=== PATIENT | male | born 1995 | race Caucasian/White ===

== ENCOUNTER 2020-06-10 01:01 | Emergency (ER) | payer MEDICAID, SELFPAY ==
[2020-06-10 01:13] VITALS: BP 164/87; PULSE 59; RESP 18; TEMP 36.8; O2SAT 97; BMI 29.3
[2020-06-10 01:17] VITALS: O2SAT 97
--- NOTE | 2020-06-10 01:26 | W.ED.COVID ---
HPI - COVID General: Chief Complaint: COVID symptoms Stated Complaint: covid exposure/cough Time Seen by Provider: 06/10/20 01:05 Triage information: Has fever, cough or shortness of breath. Exposure to COVID + person last 14 days History of Present Illness: HPI Narrative: chills, diarrhea, post exposure MD complaint: reported COVID exposure and has COVID symptoms Prior covid testing: no COVID 19 common symptoms: positive chills, cough, non-productive cough, body aches, loss of sense of smell and/or taste, nausea and diarrhea; negative headache(s), throat pain or nasal congestion COVID 19 other sytmptoms: negative chest pain Onset (ago): day(s) Severity: mild Treatment prior to arrival: none COVID Results: SARS-CoV-2 RNA (RT-PCR) Pending 06/10/20 01:30 06/10/20 Review of Systems Const: Reports: chills and body aches Eyes: Denies: change in vision or blurry vision ENMT: Denies: throat pain or nasal congestion Card: Denies: chest pain or dyspnea on exertion Resp: Reports: non-productive cough GI: Reports: nausea and diarrhea : Denies: difficulty urinating Musc: Denies: extremity pain Skin/Breast: Denies: rash Neuro: Denies: headache(s) Psych: Denies: anxiety or depression David/Lymph: Denies: easy bruising PFS ED PFSH: Social History (Updated 01/07/20 @ 11:09 by Agustina Campoverde LPN) Smoking and tobacco status: never smoked Alcohol intake: current Physical Exam Const: COMMON NORMALS: no acute distress Neck/C-Spine: COMMON NORMALS: no JVD Chest: COMMONS NORMALS: normal inspection of the chest Resp: COMMON NORMALS: normal respiratory effort Cardio: COMMON NORMALS: no JVD GI: INSPECTION: Yes normal to inspection Psych: COMMON NORMALS: mental status grossly normal Course Vital Signs: Vital signs: Vital Signs Temperature 98.3 F 06/10/20 01:39 Pulse Rate 84 06/10/20 01:39 Respiratory Rate 18 06/10/20 01:39 Blood Pressure 161/69 06/10/20 01:39 Pulse Oximetry 97 06/10/20 01:39 MDM - COVID Lab Data COVID Results: SARS-CoV-2 RNA (RT-PCR) Pending 06/10/20 01:30 06/10/20 Discharge Plan Discharge Patient Disposition: Home Clinical Impression: Exposure to severe acute respiratory syndrome coronavirus 2 (SARS-CoV-2) Condition: Stable Prescriptions: New Zofran 4 mg tablet 4 mg PO Q8H PRN (Reason: nausea and vomiting) 3 Days Qty: 10 RF: 0 No Action risperidone [Risperdal] 2 mg tablet 2 mg PO DAILY RF: 0 buspirone 5 mg tablet 5 mg PO BID RF: 0 trazodone 100 mg tablet 100 mg PO DAILY RF: 0 valacyclovir 1 gram tablet 1,000 mg PO Q8H 7 Days Qty: 21 RF: 0 Discharge Orders: Discharge Order (Routine); Ordered 06/10/20 Ordered By: Rosalio Doyle Discharge Diet: Advance as tolerated Discharge Activity: Increase activity as tolerated Patient Instructions: Viral Syndrome (ED) Activity Restrictions/Additional Instructions: self quarantine at home. No work until test results are back, rest, fluids. Stand Alone Forms: Work/School Release Discharge Date/Time: 06/10/20 01:39 Coding Level of Care Code ED Inbound Call Center Representative for Chg Fwd Exam Detailed
[2020-06-10 01:39] VITALS: BP 161/69; PULSE 84; RESP 18; TEMP 36.8; O2SAT 97
--- NOTE | 2020-06-10 01:39 | PC.NURSE ---
Sent ondansetron 4mg home with patient per provider orders.
[2020-06-11 21:52] LABS: Quest SARS-CoV-2 RNA NOT DETECTED (NOT DETECTED)
--- NOTE | 2020-06-13 08:23 | PC.NURSE ---
could not contact pt to give COVID 19 results. Letter sent for Pt to contact ER to receive results.
== END 2020-06-10 01:39 | disposition home or self-care (01) ==
PROVIDERS: Emergency Provider Nurse Practitioner Family
DX: Z20.828 Contact with and (suspected) exposure to other viral communicable diseases (principal)
CPT/HCPCS: 12345; 87635; 99283

== ENCOUNTER 2020-07-25 08:10 | Emergency (ER) | payer MEDICAID, SELFPAY ==
[2020-07-25 08:11] VITALS: O2SAT 96
[2020-07-25 08:18] VITALS: BP 169/93; PULSE 74; RESP 18; TEMP 36; O2SAT 97; BMI 28.7
--- NOTE | 2020-07-25 08:27 | W.ED.COVID ---
HPI - COVID General: Chief Complaint: COVID symptoms Stated Complaint: N/V, DIFF BREATHING Time Seen by Provider: 07/25/20 08:16 Triage information: Has fever, cough or shortness of breath. Exposure to COVID + person last 14 days History of Present Illness: HPI Narrative: Patient is a 25-year-old male comes to the ED with upper respiratory symptoms and nausea and vomiting. Patient has had the symptoms for the past 3 days. He was exposed to known Covid positive patient for extended amount of time over the last 3 weeks. He says his cough is dry nonproductive. He has nasal congestion and drainage. He has nausea and vomiting but is able to keep liquids down. Has not eaten much over the past 3 days due to nausea. 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 He thinks some of his shortness of breath he feels at work is due to the mask and working conditions. Denies any fever, chest pain, diarrhea, constipation, dysuria or hematuria. COVID 19 common symptoms: positive non-productive cough, nasal congestion, nausea and vomiting; negative fever(s), chills, productive cough, dyspnea, fatigue, headache(s), throat pain or diarrhea COVID 19 other sytmptoms: negative chest pain COVID Results: SARS-CoV-2 RNA (RT-PCR) Not detected (NOT DETECTED) 06/10/20 01:30 06/10/20 Review of Systems Const: Denies: fever(s), chills or fatigue Eyes: Denies: change in vision or eye discomfort ENMT: Reports: nasal discharge and nasal congestion; Denies: throat pain or odynophagia Card: Denies: chest pain, palpitations, edema, swelling of feet/ankles, dyspnea on exertion or orthopnea Resp: Reports: non-productive cough; Denies: dyspnea or productive cough GI: Reports: nausea and vomiting; Denies: abdominal pain, diarrhea, constipation or hematochezia : Denies: flank pain, difficulty urinating, dysuria or hematuria Musc: Denies: neck pain, back pain or extremity swelling Skin/Breast: Denies: rash or new lesions Neuro: Denies: headache(s), numbness in extremities or weakness in extremities PFSH ED PFSH: Social History Smoking and tobacco status: never smoked Alcohol intake: current Physical Exam Const: COMMON NORMALS: no acute distress, patient oriented x3, healthy appearing and alert GENERAL APPEARANCE: cooperative and comfortable HENMT: COMMON NORMALS: normocephalic HEAD & SCALP: normocephalic MOUTH: Normal oral and palatal mucosa present THROAT: posterior oropharynx normal and uvula midline Eye: COMMON NORMALS: Equal, round and reactive pupils present PUPIL: Yes Equal, round and reactive pupils present Neck/C-Spine: COMMON NORMALS: supple GENERAL: Yes normal visual inspection Resp: COMMON NORMALS: normal respiratory effort, No retractions, No use of accessory muscles and clear to auscultation bilaterally EFFORT & INSPECTION: Yes able to speak in complete sentences, No tachypneic, No respiratory distress and No labored AUSCULTATION: clear to auscultation bilaterally Cardio: COMMON NORMALS: regular rate, regular rhythm, S1 normal heart sound present, S2 normal heart sound present, No gallops present (Cardio), No clicks present (Cardio), No murmurs present (Cardio) and Peripheral pulses 2+ throughout RATE: regular rate RHYTHM: regular rhythm HEART SOUNDS: S1 normal heart sound present and S2 normal heart sound present PERIPHERAL PULSES: Peripheral pulses 2+ throughout GI: COMMON NORMALS: Normal to inspection, nondistended, normoactive bowel sounds present, Soft to palpation, non-tender and no masses PALPATION: Yes Soft to palpation : COMMON NORMALS: Yes no CVA tenderness BLADDER/KIDNEY EXAM: Yes no CVA tenderness Back/Pelvis: COMMON NORMALS: no CVA tenderness Extremity: COMMON NORMALS: normal to inspection Neuro: COMMON NORMALS: patient oriented x3 and moves all extremities SENSORIUM/ORIENTATION: Yes alert Skin: GENERAL SKIN EXAM: dry skin Course Vital Signs: Vital signs: Vital Signs Temperature 96.8 F L 07/25/20 08:18 Pulse Rate 74 07/25/20 08:18 Respiratory Rate 18 07/25/20 08:18 Blood Pressure 169/93 07/25/20 08:18 Pulse Oximetry 97 07/25/20 08:18 MDM - COVID MDM Narrative: Medical decision making narrative: Patient is a 25-year-old male comes to the ED with upper respiratory infection symptoms. He had close exposed to known Covid positive patient recently. He is having some nausea and vomiting as well but he is able to keep fluids down. Vital signs were stable patient is showing no signs of any respiratory distress O2 sat 97% on room air and respirations 18. Lungs were clear to auscultation bilaterally chest x-ray showed no acute findings. Covid 19 [facility] testing was performed and pending. Patient discharged and given self quarantine instructions. He was told Covid testing results would be back in 2 to 3 days and he can either call the hospital to get results or the hospital will be calling him once they receive results.. Return to ED precautions given. He was sent home with a prescription for Zofran help with any nausea. Follow-up with PCP in 7 to 10 days. Patient understood agree with plan. Imaging Data: CXR: Attestation: I personally reviewed and interpreted this imaging study as follows: Radiologist's impression: Reason: cough [address] [address] XRay Report Signed Patient: Luke Peralta Unit #: [id number] : [id number] Age/Sex: 25 / M ADM Date: 07/25/20 Loc: ER Room/Bed: Attending Dr: Ordering Provider/Ordering MD: John Patino Date of Service: 07/25/20 Procedure(s): XR chest 1V portable [id number] Accession Number(s): [id number] Report Number: [id number] WS: [id number] PORTABLE CHEST HISTORY: cough COMPARISON: 07/14/2012 Lungs are clear and well expanded. No pleural effusion or pneumothorax. Cardiac size: Normal. Mediastinum/Aorta: Normal mediastinum. No osseous abnormality seen. XR/XR chest 1V portable [id number] IMPRESSION: Unremarkable portable chest. Dictated By: Blanca Flores DO Signed By: Blanca Flores DO Signed Date/Time: 07/25/20858 DD/ 8 COVID Results: SARS-CoV-2 RNA (RT-PCR) Not detected (NOT DETECTED) 06/10/20 01:30 06/10/20 Discharge Plan Discharge Patient Disposition: Home Clinical Impression: Close exposure to severe acute respiratory syndrome coronavirus 2 (SARS-CoV-2), Upper respiratory infection, viral Condition: Stable Prescriptions: New Zofran 4 mg tablet 4 mg PO Q8H Qty: 15 RF: 0 No Action risperidone [Risperdal] 2 mg tablet 2 mg PO DAILY RF: 0 buspirone 5 mg tablet 5 mg PO BID RF: 0 trazodone 100 mg tablet 100 mg PO DAILY RF: 0 valacyclovir 1 gram tablet 1,000 mg PO Q8H 7 Days Qty: 21 RF: 0 Discharge Orders: Discharge ED (Routine); Ordered 07/25/20 Ordered By: John Patino Discharge Diet: Regular Discharge Activity: Limit activity as instructed Patient Instructions: Upper Respiratory Infection (ED) Activity Restrictions/Additional Instructions: Follow-up with medical provider as directed in 7-10 days. COVID testing was performed and sent to lab and results will be back in 2 to 3 days. Self quarantine for the next 3 days or up to 12 days pending on COVID testing results. Contact [facility] in 2 to 3 days to get results or [facility] will contact you with results. Take ibuprofen or Tylenol for fevers. Drink plenty of fluids and stay hydrated. Symptom management with [id number] cough and nasal decongestant meds. Return to the ER or your medical provider if condition worsens. Please read and understand discharge instructions. If any questions, please ask. Coding Level of Care Code ED Director Weights And Measures for Jeremy Benitez Exam Comprehensive
--- NOTE | 2020-07-25 08:28 | XR_ITS ---
WS: [id number] PORTABLE CHEST HISTORY: cough COMPARISON: 07/14/2012 Lungs are clear and well expanded. No pleural effusion or pneumothorax. Cardiac size: Normal. Mediastinum/Aorta: Normal mediastinum. No osseous abnormality seen. XR/XR chest 1V portable [id number] IMPRESSION: Unremarkable portable chest.
[2020-07-25] MEDS: ondansetron 4 MG Tablet PO (08:53)
[2020-07-25 09:11] VITALS: PULSE 58; RESP 18; O2SAT 96
[2020-07-26 20:23] LABS: Quest SARS-CoV-2 RNA NOT DETECTED (NOT DETECTED)
--- NOTE | 2020-07-27 08:06 | PC.NURSE ---
Patient notified of COVID results at this time.
== END 2020-07-25 09:10 | disposition home or self-care (01) ==
PROVIDERS: Emergency Provider Physician Assistant
DX: Z20.828 Contact with and (suspected) exposure to other viral communicable diseases (principal); J06.9 Acute upper respiratory infection, unspecified
CPT/HCPCS: 12345; 71045; 87635; 99281; 99283; Q0162

== ENCOUNTER 2020-08-20 05:21 | Emergency (ER) | payer MEDICAID, SELFPAY ==
[2020-08-20 05:28] VITALS: BP 161/99; PULSE 67; RESP 16; TEMP 36.7; O2SAT 98; BMI 30.2
--- NOTE | 2020-08-20 05:31 | W.ED.COVID ---
HPI - COVID General: Chief Complaint: COVID symptoms Stated Complaint: cough,nausea,vom/wants covid test/in tv wait room Time Seen by Provider: 08/20/20 05:29 Source: patient Mode of arrival: ambulatory Limitations: no limitations History of Present Illness: HPI Narrative: 25-year-old male who states last 3 days had cough congestion and some nausea along with vomiting. He states his boss wants to be tested for Covid as he was recently in [place]. Patient was seen at urgent care 2 days ago and placed on antibiotics and steroids. He states they did not test him. Denies any worsening improving factors. COVID 19 common symptoms: positive chills, non-productive cough, body aches, nausea and vomiting; negative headache(s) or throat pain COVID 19 other sytmptoms: negative chest pain COVID Results: SARS-CoV-2 RNA (RT-PCR) Not detected (NOT DETECTED) 07/25/20 08:45 07/25/20 Review of Systems Const: Reports: chills and body aches Eyes: Denies: blurry vision or eye discomfort ENMT: Denies: throat pain or dental pain Card: Denies: chest pain Resp: Reports: non-productive cough GI: Reports: nausea and vomiting : Denies: dysuria Musc: Denies: neck pain or back pain Skin/Breast: Denies: rash Neuro: Denies: headache(s) Psych: Denies: depression David/Lymph: Denies: easy bruising All/Imm: Denies: urticaria PFSH ED PFSH: Social History Smoking and tobacco status: never smoked Alcohol intake: current Physical Exam Const: COMMON NORMALS: no acute distress, patient oriented x3 and healthy appearing HENMT: COMMON NORMALS: normocephalic and atraumatic HEAD & SCALP: normocephalic and atraumatic Eye: COMMON NORMALS: Equal, round and reactive pupils present and EOMs intact bilaterally PUPIL: Yes Equal, round and reactive pupils present Neck/C-Spine: COMMON NORMALS: full ROM and supple Chest: COMMONS NORMALS: normal inspection of the chest and normal palpation of entire chest wall Resp: COMMON NORMALS: normal respiratory effort, No retractions, No use of accessory muscles and clear to auscultation bilaterally AUSCULTATION: clear to auscultation bilaterally Cardio: COMMON NORMALS: regular rate, regular rhythm and No murmurs present (Cardio) RATE: regular rate RHYTHM: regular rhythm GI: COMMON NORMALS: Normal to inspection, nondistended, normoactive bowel sounds present, Soft to palpation, non-tender and no masses PALPATION: Yes Soft to palpation Extremity: COMMON NORMALS: normal to inspection and full ROM Neuro: COMMON NORMALS: patient oriented x3, moves all extremities and no focal motor deficits Psych: COMMON NORMALS: mental status grossly normal, Normal thought process present and cooperative THOUGHT PROCESS: Normal thought process present Skin: COMMON NORMALS: no rashes or lesions noted and no wounds GENERAL SKIN EXAM: no rashes or lesions noted Course Vital Signs: Vital signs: Vital Signs Temperature 98.1 F 08/20/20 05:28 Pulse Rate 67 08/20/20 05:28 Respiratory Rate 16 08/20/20 05:28 Blood Pressure 161/99 08/20/20 05:28 Pulse Oximetry 98 08/20/20 05:28 MDM - COVID MDM Narrative: Medical decision making narrative: Patient presents here with possible Covid. He is well-appearing here and said no vomiting here. He states he just wants Covid testing. Abdominal exam is benign he has no signs appendicitis. We will do the Covid test and prescribe him Zofran. He is return if worsening. His pulse ox and vital signs here are all normal. COVID Results: SARS-CoV-2 RNA (RT-PCR) Not detected (NOT DETECTED) 07/25/20 08:45 07/25/20 Discharge Plan Discharge Patient Disposition: Home Clinical Impression: Suspected severe acute respiratory syndrome coronavirus 2 (SARS-CoV-2) infection, Suspected 2019-nCoV infection, Vomiting Condition: Stable Prescriptions: No Action risperidone [Risperdal] 2 mg tablet 2 mg PO DAILY RF: 0 buspirone 5 mg tablet 5 mg PO BID RF: 0 trazodone 100 mg tablet 100 mg PO DAILY RF: 0 azithromycin 250 mg tablet See Rx Instructions PO .COMPLEX Qty: 6 RF: 0 prednisone 20 mg tablet 40 mg PO DAILY 5 Days Qty: 10 RF: 0 Discharge Orders: Discharge ED (Routine); Ordered 08/20/20 Ordered By: Kristyn Boles Discharge Diet: Advance as tolerated Discharge Activity: Resume usual activity Patient Instructions: Acute Nausea and Vomiting (ED) Coding Level of Care Code 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
[2020-08-20] MEDS: ondansetron 4 MG Tablet PO (05:45)
[2020-08-20 05:51] VITALS: BP 161/99; PULSE 67; RESP 16; O2SAT 97
[2020-08-20 06:15] VITALS: BP 136/61; PULSE 67; RESP 16; TEMP 36.7; O2SAT 97
[2020-08-25 11:47] LABS: Coronavirus Test Green County Not Detected
== END 2020-08-20 06:15 | disposition home or self-care (01) ==
PROVIDERS: Emergency Provider Emergency Medicine
DX: Z20.828 Contact with and (suspected) exposure to other viral communicable diseases (principal)
CPT/HCPCS: 12345; 87635; 99281; 99283; Q0162